=== PATIENT | male | born 1955 | race Caucasian/White ===

== ENCOUNTER 2018-01-30 03:53 | Observation (INO) | payer OTHER ==
[~2018-01-30] VITALS: Ht 175.3 cm; Wt 123.4 kg
[2018-01-30] MEDS ORDERED: FLUT12AE INH (04:39)
[2018-01-30] MEDS ORDERED: CARV12.543 PO (04:39)
[2018-01-30] MEDS ORDERED: AMIO200T42 PO (04:39)
[2018-01-30] MEDS ORDERED: ALBU90AE INH (04:39)
[2018-01-30] MEDS ORDERED: AMLO5TAB2 PO (04:39)
[2018-01-30] MEDS ORDERED: LEVE500T8 PO (04:41)
[2018-01-30] MEDS ORDERED: SENN8.6T5 PO (04:41)
[2018-01-30] MEDS ORDERED: OXYC5CAP2 PO (04:41)
[2018-01-30] MEDS ORDERED: NYST1000 PO (04:41)
[2018-01-30] MEDS ORDERED: RIVA15TA PO (04:41)
[2018-01-30] MEDS ORDERED: LORazepam 2 MG/ML, 1ML ONE (04:54)
[2018-01-30] MEDS ORDERED: LORazepam 2 MG/ML, 1ML IVPush ONE (05:00)
[2018-01-30] MEDS ORDERED: SODIUM CHLORIDE FLUSH 10ML SYR IVF ONE (05:00)
[2018-01-30 05:23] LABS: BASOPHILS # (AUTO) 0.01 x10^3/uL (0-0.1); BASOPHILS % (AUTO) 0 % (0-1); EOSINOPHILS # (AUTO) 0.24 x10^3/uL (0-0.4); EOSINOPHILS % (AUTO) 4 % (1-7); LYMPHOCYTES # (AUTO) 0.55 x10^3/uL (1-3.4); LYMPHOCYTES % (AUTO) 8 % (22-44); MD NO; MEAN CORPUSCULAR HEMOGLOBIN 32.9 pg (27.5-34.5); MEAN CORPUSCULAR HGB CONC 34.8 g/dL (33.2-36.2); MEAN CORPUSCULAR VOLUME 94.7 fL (81-97); MEAN PLATELET VOLUME 7.1 fL (7.4-10.4); MONOCYTES # (AUTO) 0.72 x10^3/uL (0.2-0.8); MONOCYTES % (AUTO) 11 % (2-9); NEUTROPHILS # (AUTO) 5.19 x10^3/uL (1.8-6.8); NEUTROPHILS % (AUTO) 78 % (42-75); PLATELET COUNT 300 x10^3/uL (130-400); RED BLOOD COUNT 3.42 x10^6/uL (4.38-5.82); RED CELL DISTRIBUTION WIDTH 15.4 % (9.4-14.8)
[2018-01-30 05:30] LABS: INTERNATIONAL NORMALIZED RATIO 1.38 (0.93-1.1); PROTHROMBIN TIME 14.3 Seconds (9.6-11.5)
[2018-01-30 05:38] LABS: CALCIUM 8.4 mg/dL (8.5-10.1); CHLORIDE 107 mmol/L (98-107)
[2018-01-30 05:44] LABS: ALANINE AMINOTRANSFERASE 18 U/L (12-78); ALBUMIN 2.4 g/dL (3.4-5.0); ALKALINE PHOSPHATASE 71 U/L (45-117); ANION GAP 8 mmol/L (5-15); BILIRUBIN,TOTAL 0.7 mg/dL (0.2-1.0); CREATININE 1.12 mg/dL (0.7-1.3); TOTAL PROTEIN 6.6 g/dL (6.4-8.2)
[2018-01-30] MEDS ORDERED: LEVETIRACETAM 1,000 MG in SODIUM CHLORIDE 0.9% 100 ML IV ONE (09:00)
[2018-01-30 10:38] VITALS: BP 135/78
[2018-01-30 11:08] VITALS: BP 123/71
[2018-01-30] MEDS ORDERED: ACETAMINOPHEN 325 MG TABLET PO PRN (11:30)
[2018-01-30] MEDS ORDERED: ONDANSETRON 2MG/ML, 2ML IVPush PRN (11:30)
[2018-01-30] MEDS ORDERED: OXYcodone IR 5MG TABLET PO PRN (11:30)
[2018-01-30] MEDS ORDERED: [UNRECOGNIZED DRUG - REMARK] MC PRN (13:00)
[2018-01-30 13:40] VITALS: BP 119/75
[2018-01-30] MEDS: NYSTATIN 500,000 UNITS/5 ML UDC PO SCH ×3 (13:56→23:49)
[2018-01-30] MEDS: SODIUM CHLORIDE 0.9% 1,000 ML IV SCH (13:56)
[2018-01-30] MEDS: ALBUTEROL SULFATE 2.5MG/0.5ML NPPB SCH ×2 (16:00→21:00)
[2018-01-30 18:35] VITALS: BP 105/64
[2018-01-30 21:14] VITALS: BP 128/76
[2018-01-30] MEDS: RIVAROXABAN 15 MG TABLET PO SCH (21:15)
[2018-01-30] MEDS: AMIODARONE 200 MG TABLET PO SCH (21:15)
[2018-01-30] MEDS: LEVETIRACETAM 500 MG TABLET PO SCH (21:15)
[2018-01-30] MEDS: CARVEDILOL 12.5 MG TABLET PO SCH (21:16)
[2018-01-30] MEDS: FLUTICASONE FUROATE 100MCG/INH INH SCH (21:24)
[2018-01-31 01:24] VITALS: BP 100/58
[2018-01-31] MEDS: SODIUM CHLORIDE 0.9% 1,000 ML IV SCH (02:24)
[2018-01-31] MEDS: NYSTATIN 500,000 UNITS/5 ML UDC PO SCH ×2 (05:12→11:53)
[2018-01-31] MEDS: ALBUTEROL SULFATE 2.5MG/0.5ML NPPB SCH (06:00)
[2018-01-31 06:49] VITALS: BP 117/75
[2018-01-31] MEDS: LEVETIRACETAM 500 MG TABLET PO SCH (08:39)
[2018-01-31] MEDS: CARVEDILOL 12.5 MG TABLET PO SCH (08:39)
[2018-01-31] MEDS: RIVAROXABAN 15 MG TABLET PO SCH (08:39)
[2018-01-31] MEDS: AMIODARONE 200 MG TABLET PO SCH (08:40)
[2018-01-31] MEDS: FLUTICASONE FUROATE 100MCG/INH INH SCH (09:00)
[2018-01-31] MEDS ORDERED: AMLODIPINE 5 MG TABLET PO SCH (09:00)
[2018-01-31] MEDS ORDERED: LEVE500T53 PO (11:04)
== END 2018-01-31 13:10 | disposition home or self-care (01) ==
LOC: ED 07:11 → EDIP 09:20 → INTOOBSV 09:20 → 3NW 10:32
PROVIDERS: ADMIT Hospitalist; ATTEND Hospitalist
DX: G40.209 Localization-related (focal) (partial) symptomatic epilepsy and epileptic syndromes with complex partial seizures, not intractable, without status epilepticus (principal); C79.31 Secondary malignant neoplasm of brain; I10 Essential (primary) hypertension; I48.91 Unspecified atrial fibrillation; E43 Unspecified severe protein-calorie malnutrition; D64.9 Anemia, unspecified; Z79.01 Long term (current) use of anticoagulants; Z85.01 Personal history of malignant neoplasm of esophagus; Z85.841 Personal history of malignant neoplasm of brain
CPT/HCPCS: 36415; 70450; 80053; 85025; 85610; 96361; 96374; 96375; 99285; G0378; J1953; J2060; J7030

== ENCOUNTER → 2018-02-03 | Outpatient (CLI) | payer OTHER ==
[~2018-02-03] MED LIST: ALBU90AE INH; AMIO200T42 PO; AMLO5TAB2 PO; CARV12.543 PO; FLUT12AE INH; LEVE500T53 PO; LEVE500T8 PO; NYST1000 PO; OMNIPAQUE 350 MG/ML, 100ML BOTTLE ONE; OXYC5CAP2 PO; RIVA15TA PO; SENN8.6T5 PO
== END | disposition home or self-care (01) ==
LOC: RAD 08:47
PROVIDERS: ATTEND Radiology Radiation Oncology
DX: J43.9 Emphysema, unspecified (principal); J18.1 Lobar pneumonia, unspecified organism; K57.30 Diverticulosis of large intestine without perforation or abscess without bleeding; C15.9 Malignant neoplasm of esophagus, unspecified; C79.31 Secondary malignant neoplasm of brain; I10 Essential (primary) hypertension
CPT/HCPCS: 71260; 74177; Q9967

== ENCOUNTER → 2018-02-04 | Outpatient (CLI) | payer OTHER ==
[~2018-02-04] MED LIST changes: -OMNIPAQUE 350 MG/ML, 100ML BOTTLE ONE
== END ==
LOC: ROC 08:03
PROVIDERS: ATTEND Radiology Radiation Oncology
DX: C79.31 Secondary malignant neoplasm of brain (principal); Z85.01 Personal history of malignant neoplasm of esophagus; Z88.0 Allergy status to penicillin
CPT/HCPCS: 99213; G0463

== ENCOUNTER → 2018-03-18 | Outpatient (CLI) | payer OTHER ==
[~2018-03-18] MED LIST changes: +GADOBUTROL 10 MMOL/10 ML VIAL ONE
== END | disposition home or self-care (01) ==
LOC: CFH 11:58
PROVIDERS: ATTEND Radiology Radiation Oncology
DX: G93.6 Cerebral edema (principal); G93.89 Other specified disorders of brain; C79.31 Secondary malignant neoplasm of brain; Z85.01 Personal history of malignant neoplasm of esophagus
CPT/HCPCS: 70553; A9585

== ENCOUNTER → 2018-05-08 | Outpatient (CLI) | payer OTHER ==
[~2018-05-08] MED LIST changes: -GADOBUTROL 10 MMOL/10 ML VIAL ONE
== END | disposition home or self-care (01) ==
LOC: ROC 08:09
PROVIDERS: ATTEND Radiology Radiation Oncology
DX: C79.31 Secondary malignant neoplasm of brain (principal); C15.9 Malignant neoplasm of esophagus, unspecified
CPT/HCPCS: 99213; G0463

== ENCOUNTER → 2018-06-18 | Outpatient (CLI) | payer OTHER | END | disposition home or self-care (01) | LOC: ROC 07:36 | PROVIDERS: ATTEND Radiology Radiation Oncology | DX: C79.31 Secondary malignant neoplasm of brain (principal); C15.9 Malignant neoplasm of esophagus, unspecified | CPT/HCPCS: 99213; G0463 ==